=== PATIENT | female | born 1970 | race African-American/Black ===

== ENCOUNTER 2016-07-04 10:05 | Emergency (ER) | payer OTHER ==
[~2016-07-04] VITALS: Ht 144.8 cm; Wt 61.2 kg
[2016-07-04 10:12] VITALS: TEMP 98.1
[2016-07-04 10:40] LABS: POTASSIUM 3.7 mmol/L (3.6-5.2); SODIUM 136 mmol/L (136-145)
[2016-07-04 10:43] LABS: PLATELET COUNT 259 K/uL (152-353)
[2016-07-04 14:19] VITALS: BP 155/90
== END 2016-07-04 14:19 | disposition home or self-care (01) ==
LOC: ED 10:05
DX: N83.202 Unspecified ovarian cyst, left side (principal); N85.2 Hypertrophy of uterus; M43.06 Spondylolysis, lumbar region
CPT/HCPCS: 36415; 80053; 81000; 81025; 85027; 96374; 99284; J2405; Q9963